=== PATIENT | male | born 1950 | race Caucasian/White ===

== ENCOUNTER → 2019-10-27 07:01 | Outpatient (CLI) | payer MEDICARE, OTHER, SELFPAY ==
[2019-10-27 08:43] LABS: Add Manual Diff / Slide Review NO; Basophils Absolute Auto 100 /uL (0-100); Basophils Percent Auto 1.2 % (0-2); Eosinophils Absolute Auto 100 /uL (0-450); Eosinophils Percent Auto 2.8 % (2-4); Hematocrit 48.1 % (41-53); Hemoglobin 16.3 g/dL (13.5-17.5); Lymphocytes Absolute Auto 1400 /uL (1100-4500); Lymphocytes Percent Auto 27.8 % (25-40); Mean Corpuscular HGB Conc 33.8 % (30-36); Mean Corpuscular Hemoglobin 31.3 PG (26-34); Mean Corpuscular Volume 92.5 fL (80-100); Monocytes Absolute Auto 400 /uL (0-900); Monocytes Percent Auto 7.9 % (3-14); Neutrophils Absolute Auto 3000 /uL (1500-7000); Neutrophils Percent Auto 60.3 % (50-75); Platelet Count 254 X10^3/uL (150-400); Red Cell Distribution Width 12.7 % (11.6-14.8)
[2019-10-27 09:22] LABS: Alanine Aminotransferase 31 IU/L (<50); Albumin 4.2 g/dL (3.5-5.0); Albumin Globulin Ratio 1.8 (1.0-2.8); Alkaline Phosphatase 54 U/L (38-126); Aspartate Aminotransferase 33 IU/L (17-59); Bilirubin Total 1.2 mg/dL (0.2-1.3); Blood Urea Nitrogen 24 mg/dL (9-20); Calcium 9.1 mg/dL (8.4-10.2); Carbon Dioxide 29 mmol/L (22-32); Chloride 104 mmol/L (98-107); Estimated Glomerular Filt Rate > 60.0 mL/min (>60); Globulin 2.4 g/dL (1.7-4.1); Glucose 93 mg/dL (80-110); HDL Cholesterol 49 mg/dL (40-60); HEMOLYSIS < 15 (0-50); Potassium 3.9 mmol/L (3.4-5.1); Sodium 138 mmol/L (137-145); Total Protein 6.6 g/dL (6.3-8.2); Triglycerides 111 mg/dL (35-150)
[2019-10-27 09:23] LABS: Cholesterol 156 mg/dL (140-199); LDL Cholesterol Calculated 85 mg/dL (<100)
[2019-10-27 09:54] LABS: Prostate Specific Antigen 1.64 ng/mL (0.10-4.00)
[2019-10-27 09:57] LABS: Testosterone 677 ng/dL (71.8-623)
== END ==
PROVIDERS: PCP Internal Medicine; Referring Provider Internal Medicine; Visit Provider Internal Medicine
DX: I10 Essential (primary) hypertension (principal); E78.2 Mixed hyperlipidemia; E29.1 Testicular hypofunction; J32.0 Chronic maxillary sinusitis
CPT/HCPCS: 36415; 80053; 80061; 84153; 84403; 85025

== ENCOUNTER → 2019-11-17 07:03 | Outpatient (CLI) | payer MEDICARE, OTHER, SELFPAY ==
[2019-11-17 08:41] LABS: Magnesium 2.1 mg/dL (1.6-2.3)
[2019-11-17 09:08] LABS: TSH w/ Reflex to FT4 2.42 uIU/mL (0.47-4.68)
== END ==
PROVIDERS: PCP Internal Medicine; Referring Provider Internal Medicine; Visit Provider Internal Medicine
DX: R00.2 Palpitations (principal)
CPT/HCPCS: 36415; 83735; 84443

== ENCOUNTER → 2020-05-15 06:58 | Outpatient (CLI) | payer MEDICARE, OTHER, SELFPAY ==
[2020-05-15 09:32] LABS: Prostate Specific Antigen 1.31 ng/mL (0.10-4.00)
[2020-05-15 09:35] LABS: Testosterone 668 ng/dL (71.8-623)
== END ==
PROVIDERS: PCP Internal Medicine; Referring Provider Internal Medicine; Visit Provider Internal Medicine
DX: E29.1 Testicular hypofunction (principal); I10 Essential (primary) hypertension; E78.2 Mixed hyperlipidemia; Z12.5 Encounter for screening for malignant neoplasm of prostate
CPT/HCPCS: 36415; 84153; 84403; G0103

== ENCOUNTER → 2020-07-16 06:53 | Outpatient (CLI) | payer MEDICARE, OTHER, SELFPAY ==
[2020-07-16 12:12] LABS: Testosterone 255 ng/dL (71.8-623)
== END ==
PROVIDERS: PCP Internal Medicine; Referring Provider Internal Medicine; Visit Provider Internal Medicine
DX: I10 Essential (primary) hypertension (principal); E29.1 Testicular hypofunction
CPT/HCPCS: 36415; 84403

== ENCOUNTER → 2020-11-20 06:55 | Outpatient (CLI) | payer MEDICARE, OTHER, SELFPAY ==
[2020-11-20 08:09] LABS: Add Manual Diff / Slide Review NO; Basophils Absolute Auto 100 /uL (0-100); Eosinophils Absolute Auto 100 /uL (0-450); Eosinophils Percent Auto 2.3 % (2-4); Hematocrit 45.7 % (41-53); Hemoglobin 15.6 g/dL (13.5-17.5); Lymphocytes Absolute Auto 1300 /uL (1100-4500); Lymphocytes Percent Auto 25.6 % (25-40); Mean Corpuscular HGB Conc 34.1 % (30-36); Mean Corpuscular Hemoglobin 31.5 PG (26-34); Mean Corpuscular Volume 92.3 fL (80-100); Monocytes Absolute Auto 400 /uL (0-900); Monocytes Percent Auto 7.7 % (3-14); Neutrophils Absolute Auto 3200 /uL (1500-7000); Neutrophils Percent Auto 63.4 % (50-75); Platelet Count 247 X10^3/uL (150-400); Red Blood Cell Count 4.95 X10^6/uL (4.5-5.9); Red Cell Distribution Width 12.5 % (11.6-14.8)
[2020-11-20 08:34] LABS: Alanine Aminotransferase 30 IU/L (<50); Albumin 4.3 g/dL (3.5-5.0); Albumin Globulin Ratio 1.9 (1.0-2.8); Alkaline Phosphatase 53 U/L (38-126); Aspartate Aminotransferase 30 IU/L (17-59); BUN Creatinine Ratio 21.2 (6-22); Blood Urea Nitrogen 21 mg/dL (9-20); Calcium 9.6 mg/dL (8.4-10.2); Carbon Dioxide 30 mmol/L (22-32); Chloride 104 mmol/L (98-107); Cholesterol 146 mg/dL (140-199); Estimated Glomerular Filt Rate > 60.0 mL/min (>60); Globulin 2.3 g/dL (1.7-4.1); Glucose 94 mg/dL (80-110); HDL Cholesterol 51 mg/dL (40-60); HEMOLYSIS < 15 (0-50); LDL Cholesterol Calculated 74 mg/dL (<100); Potassium 4.1 mmol/L (3.4-5.1); Sodium 140 mmol/L (137-145); Total Protein 6.6 g/dL (6.3-8.2); Triglycerides 105 mg/dL (35-150)
[2020-11-20 09:00] LABS: Prostate Specific Antigen Scrn 1.38 ng/mL (0.1-4.0)
== END ==
PROVIDERS: PCP Internal Medicine; Referring Provider Internal Medicine; Visit Provider Internal Medicine
DX: E78.2 Mixed hyperlipidemia (principal); I10 Essential (primary) hypertension; Z12.5 Encounter for screening for malignant neoplasm of prostate
CPT/HCPCS: 36415; 80053; 80061; 85025; G0103

== ENCOUNTER → 2021-06-20 08:26 | Outpatient (CLI) | payer MEDICARE, OTHER, SELFPAY ==
--- NOTE | 2021-06-20 | DI.RAD.S_ITS ---
PROCEDURE: XR KNEE RT 3V INDICATIONS: Pain in right knee TECHNIQUE: 3 views of the knee were acquired. COMPARISON: None. FINDINGS: Bones: No fractures or dislocations. No suspicious bony lesions. Mild osteoarthritic degenerative changes noted in all 3 compartments of the right knee. Soft tissues: No joint effusion. No suspicious soft tissue calcifications. IMPRESSION: Mild right knee tricompartmental osteoarthritis. Dictated by: Eva Stein MD, PhD on 06/20/2021 at 11:10 Approved by: Eva Stein MD, PhD on 06/20/2021 at 11:11
== END ==
PROVIDERS: PCP Internal Medicine; Referring Provider Internal Medicine; Visit Provider Internal Medicine
DX: M17.11 Unilateral primary osteoarthritis, right knee (principal); M25.561 Pain in right knee
CPT/HCPCS: 73562

== ENCOUNTER → 2021-11-04 08:44 | Outpatient (CLI) | payer MEDICARE, OTHER, SELFPAY | PROVIDERS: PCP Internal Medicine; Visit Provider Physician Assistant Medical | DX: R30.0 Dysuria (principal) | CPT/HCPCS: 87077; 87086; 87186 ==

== ENCOUNTER → 2022-02-09 09:33 | Outpatient (CLI) | payer MEDICARE, OTHER, SELFPAY ==
[2022-02-09 11:12] LABS: Influenza A - CEPHEID Flu A NEGATIVE (NEGATIVE); Influenza B - CEPHEID Flu B NEGATIVE (NEGATIVE); Respiratory Syncytial Virus Negative (Negative)
[2022-02-09 11:16] LABS: COVID-19 CEPHEID 4-PLEX PCR Negative (Negative)
== END ==
PROVIDERS: PCP Internal Medicine; Visit Provider Nurse Practitioner Family
DX: R05.1 Acute cough (principal); Z20.822 Contact with and (suspected) exposure to COVID-19
CPT/HCPCS: 0241U

== ENCOUNTER → 2024-09-20 09:19 | Outpatient (CLI) | payer OTHER, MEDICARE, SELFPAY ==
--- NOTE | 2024-09-20 09:24 | DI.RAD.S_ITS ---
PROCEDURE: XR HIP W PEL IF DONE RT 2V INDICATIONS: Pain in right hip TECHNIQUE: AP pelvis with lateral view(s) of the right hip(s). COMPARISON: None. FINDINGS: Bones: No fractures or dislocations. Mild osteoarthritic degenerative change of the right hip includes joint space narrowing, marginal osteophytosis and acetabular subchondral sclerosis. Pelvic ring appears intact. No suspicious bony lesions. Soft tissues: The visualized bowel gas pattern is normal. No suspicious soft tissue calcifications. IMPRESSION: Degenerative change of the right hip without evidence of acute bony abnormality. Dictated by: Fran Chang M.D. on 09/22/2024 at 4:19 Approved by: Fran Chang M.D. on 09/22/2024 at 4:20
== END ==
PROVIDERS: PCP Internal Medicine; Referring Provider Internal Medicine; Visit Provider Internal Medicine
DX: M25.551 Pain in right hip (principal)
CPT/HCPCS: 73502

== ENCOUNTER → 2024-10-31 18:40 | Outpatient (CLI) | payer OTHER, MEDICARE, SELFPAY ==
--- NOTE | 2024-10-31 18:41 | DI.MRI.S_ITS ---
PROCEDURE: MR LUMBAR SPINE WO CON INDICATIONS: Right hip pain TECHNIQUE: Noncontrast sagittal T1 spin echo and T2 fast echo, sagittal STIR, and T2 fast spin echo through the lumbar spine. In cases with scoliosis, additional coronal T2 fast spin echo may be performed. COMPARISON: None. FINDINGS: Image quality: Excellent. Alignment and Curvature: There is minimal retrolisthesis seen at the L1-L2 level. Bone Marrow: Marrow is of normal overall signal. No acute vertebral body compression fractures. Spinal Cord: Conus medullaris terminates at the L1-L2 level. Visualized cord demonstrates normal signal and size. Paraspinous Soft Tissues: No paravertebral masses. T12-L1: Normal appearance. L1-L2: Ifur-lz-[id number] loss of disc height and disc signal can be seen. Mild to moderate disc bulge is seen, which is eccentric to the left, with a left foraminal disc protrusion, as on series 5, image 10 and on series 3, image 11. Mild facet joint hypertrophy is seen. There is mild right-sided and at least moderate left-sided neural foraminal narrowing. L2-L3: No central canal narrowing is seen. The disc height is well-preserved. Loss of disc signal is seen at this level. Mild to moderate disc bulge is seen. Mild to moderate facet hypertrophy can be seen. Moderate bilateral neural foraminal narrowing is seen. Mild central canal narrowing is seen. L3-L4: The disc height is well-preserved. Loss of disc signal is seen at this level. Mild to moderate disc bulge is seen. There is at least moderate facet hypertrophy. Associated hypertrophy of the ligamentum flavum can be seen. There is moderate left-sided and fgvu-ip-cwvvghek right-sided neural foraminal narrowing. Mild to moderate central canal narrowing is seen L4-L5: Mild loss of disc height is seen. Loss of disc signal is seen. Moderate generalized disc bulge is seen. At least moderate facet hypertrophy is seen. There is a synovial cyst seen on the right, as on series 2, image 6 and on series 5 image 27, measuring up to 9 mm. There is moderate to severe left-sided and at least moderate right-sided neural foraminal narrowing. There is a degree of compression seen upon the exiting left L4 nerve root. Moderate central canal narrowing is seen. L5-S1: The disc height and disk signal are relatively well-preserved. Mild generalized disc bulge is seen. Moderate facet hypertrophy can be seen, right worse than left. Mild bilateral neural foraminal narrowing is seen. No central canal narrowing is seen. IMPRESSION: There is a synovial cyst seen on the right-side at the L4-L5 level, with associated moderate central canal narrowing. Several sites of significant neural foraminal narrowing can be seen, with associated exiting nerve root compression. Dictated by: Kelechi Queen M.D. on 11/01/2024 at 10:16 Approved by: Kelechi Queen M.D. on 11/01/2024 at 10:21
== END ==
LOC: MRI 18:40
PROVIDERS: PCP Internal Medicine; Referring Provider Internal Medicine; Visit Provider Orthopaedic Surgery Adult Reconstructive Orthopaedic Surgery
DX: M25.551 Pain in right hip (principal); M71.38 Other bursal cyst, other site; M48.061 Spinal stenosis, lumbar region without neurogenic claudication
CPT/HCPCS: 72148

== ENCOUNTER → 2024-12-26 09:47 | Outpatient (CLI) | payer OTHER, MEDICARE, SELFPAY ==
--- NOTE | 2024-12-26 09:49 | DI.RAD.S_ITS ---
PROCEDURE: XR LUMBAR SPINE MIN 4V INDICATIONS: low back pain TECHNIQUE: 4 views of the lumbar spine acquired, including flexion and extension views COMPARISON: [facility], MR, MR LUMBAR SPINE WO CON, 10/31/2024, 18:43. FINDINGS: Bones: 5 nonrib-bearing vertebrae are present. There is normal bony alignment. Osseous demineralization. Mild multilevel disc height loss. Moderate facet joint arthropathy and hypertrophy. Grade 1 retrolisthesis L5. Early-onset anterior endplate osteophytes. No vertebral body compression fractures. No suspicious bony lesions. Moderate degenerative changes of the visualized thoracic spine. Soft tissues: Trace aortic calcification. Overlying bowel gas pattern is normal. No suspicious soft tissue calcifications. Flexion/extension: There is moderate range of motion, with preserved normal alignment. IMPRESSION: Moderate lumbar spondylosis. Findings consistent with lumbar MRI 10/31/2024. Dictated by: Teodora Palomares [facility] Interpreted: Jacky Victor MD on 12/26/2024 at 10:23 Transcribed by: KUNAL on 12/26/2024 at 10:26 Approved by: Jacky Victor M.D. on 12/26/2024 at 17:02
== END ==
PROVIDERS: PCP Internal Medicine; Referring Provider Internal Medicine; Visit Provider Physical Medicine & Rehabilitation
DX: M47.26 Other spondylosis with radiculopathy, lumbar region (principal)
CPT/HCPCS: 72110

== ENCOUNTER 2025-01-11 07:30 | Outpatient (CLI) | payer OTHER, MEDICARE, SELFPAY ==
[2025-01-11 08:00] VITALS: BP 146/79; PULSE 68; RESP 14; TEMP 36.5; O2SAT 98
[2025-01-11 08:22] VITALS: BP 158/86; PULSE 67; RESP 18; O2SAT 96
[2025-01-11] MEDS: LIDOCAINE 1% (PF) 5 ML 10 ML INJ (08:30)
[2025-01-11 08:33] VITALS: BP 155/83; PULSE 70; RESP 15; O2SAT 95
[2025-01-11 08:39] VITALS: BP 166/77; PULSE 73; RESP 16; O2SAT 96
--- NOTE | 2025-01-11 12:33 | PM.PROC.IR.1 ---
Date/Time/Diagnoses Date of procedure: 01/11/25 Time of procedure: 08:00 Pre-procedure diagnosis: Lumbosacral radiculopathy Post-procedure diagnosis: same Procedure Notes Procedure: Interlaminar epidural steroid injection L5-S1 Indications: Lumbosacral radiculopathy Physician: Marco Gonzales Total sedation minutes: 0 Complications: none Procedure in detail & Post-procedure care: Patient is here for the planned procedure today as noted. No significant change since the last office visit. For additional clinical scenario please see those office notes. Focused exam: Vital signs reviewed as charted on intake. Gen: Well developed. No acute distress. CV: RRR, no M/R/G Chest: Non-labored breathing, CTAB. Psych: Alert and well-oriented. Mood/Affect: normal. Patient suitable for the planned procedure today: Yes === The following procedure was performed in the office today: Lumbar Epidural Steroid Injection with fluoroscopic guidance - Interlaminar approach (90273) Levels Treated: [L5-S1] Approach: interlaminar Soft tissue: [1% lidocaine 2 mL] Test dose: [1% lidocaine 1 mL] Injectate: 0.75 mL of Depo-Medrol (80mg/mL) in 1.25 mL 1% lidocaine and 1.5 mL normal saline Fluoroscopy Agent: Isovue 300-M 1.5 mL Notes: 4.5 in 20 gauge Touhy needle utilized an adequate. Right paramedian approach. Preprocedure pain 3/10, postprocedure pain 3/10. Procedure: After discussing the risks, benefits, and alternatives to the procedure, the patient expressed understanding and wished to proceed. The risks include but are not limited to infection, allergic reaction, nerve damage, stroke, paralysis, epidural hematoma, syncope, headache, respiratory or cardiac arrest, spinal cord injury, and scar formation. Informed consent was obtained and all patient questions were answered. The patient was brought to the procedure suite and placed in the prone position. A pre-procedural pause was conducted to verify: correct patient identity, procedure to be performed and as applicable, correct side and site, correct patient position, and any special requirements. Using a paramedian approach from the side noted above, the region overlying the target was localized under fluoroscopic visualization and the soft tissues overlying this structure were infiltrated with the anesthetic listed above. With fluoroscopic guidance, a #20 gauge Tuohy needle (unless otherwise noted) was inserted into the epidural space using a paramedian approach. The epidural space was localized utilizing intermittent multiplanar fluoroscopic guidance and loss of resistance technique. After negative aspiration, the contrast noted above was injected into the epidural space and the flow of contrast was observed, confirming epidural spread without evidence of intravascular or intrathecal spread. Multi-planar radiographs were obtained for documentation purposes. A test dose of lidocaine was injected into the above noted epidural space, and the patient was observed for 30-60 seconds. No sensory deficits were reported and normal lower extremity motor function was noted. Subsequently, the injectate as noted above was administered into the level noted above. The patient tolerated the procedure well and was discharged after an appropriate period of observation. If there are any complications, the patient was instructed to call us. The patient is to follow-up with the requesting provider in 2-3 weeks. This note was compiled using voice recognition software and therefore may contain typos. Please contact the author with any questions or concerns.
--- OUTSIDE RECORDS SUMMARY | 2025-01-13 13:14 | XMS_ITS | Clinical Summary ---
Author Organization [facility] Address [address] [place] [id number] Care Team Providers Care Hose Cementer Name Role Phone Unavailable Primary Care Provider Unavailabl e Source Comments NOTE: The information displayed by Care Everywhere is extracted from the complete medical record and may not identify all current or past patient conditions.[facility] Social History Tobacco Use Types Packs/Day Years Used Date Smoking Tobacco: Never Assessed Sex and Gender Information Value Date Recorded Sex Assigned at Not on file Legal Sex Male 5:33 AM PST Gender Identity Not on file Sexual Orientation Not on file Plan of Treatment Health Maintenance Due Date Last Done Comments Hep C Screening (1-time) 10/09/1967 Vaccine: FCaH-Yppp-Eo (1 - Tdap) 1968 Vaccine: Pneumococcal (1 of 1 - PCV) 10/09/1999 Vaccine: Shingles (1 of 2) 10/09/1999 Vaccine: RSV (1 - 1-dose 75+ series) 2024 FLU VACCINE (#1) 10/24/2024
--- OUTSIDE RECORDS SUMMARY | 2025-01-13 13:14 | XMS_ITS | Clinical Summary ---
Author Organization [facility] Address [address] [place] [address] Care Team Providers Care Geriatrician Name Role Phone Pcp, None Selected Primary Care Provider Unavail able Social History Tobacco Use Types Packs/Day Years Used Date Smoking Tobacco: Never Assessed Sex and Gender Information Value Date Recorded Sex Assigned at Not on file Legal Sex Male 8:42 AM PDT Gender Identity Not on file Sexual Orientation Not on file Plan of Treatment Health Maintenance Due Date Last Done Comments Depression Screening (PHQ-2) 1961 Colorectal Cancer Screening (Colonoscopy) 1994 Colorectal Cancer Screening (FOBT) 1994 Colorectal Cancer Screening (Fecal DNA) 1994 Colorectal Cancer Screening Combined 1994 DTaP,Tdap,and Td Vaccines (1 - Tdap) 02/24/2010 02/23/2010 Zoster Vaccines (2 of 3) 07/02/2012 05/07/2012 Fall Risk Screening 2014 RSV Patients Over 60 years OR qualifying ( Patients) (1 - 1-dose 75+ series) 2024 COVID-19 Vaccine ( - season) 2024 Influenza Vaccine (#1) 2024 9, 11/26/2017, 11/18/2016, Additional history exists HM Pneumococcal Adult 50+ Completed 2017, 11/08/2014, 05/07/2012 HPV Vaccines Aged Out No longer eligi ble based on patient's age to complete this topic Hepatitis A Vaccines Aged Out No long er eligible based on patient's age to complete this topic Hepatitis B Vaccines Aged Out No long er eligible based on patient's age to complete this topic IPV Vaccines Aged Out No longer eligi ble based on patient's age to complete this topic MMR Vaccines Aged Out No longer eligi ble based on patient's age to complete this topic Insurance MEDICARE PART A AND B OTHER SUPP Care Teams Geriatrician Relationship Specialty Start Date End Date Pcp, None Selected PCP - General 06/09/24
== END 2025-01-11 08:45 | disposition home or self-care (01) ==
LOC: RAD 07:32
PROVIDERS: PCP Internal Medicine; Referring Provider Physical Medicine & Rehabilitation; Visit Provider Physical Medicine & Rehabilitation
DX: M54.16 Radiculopathy, lumbar region (principal); M54.17 Radiculopathy, lumbosacral region
CPT/HCPCS: 62323; J1010